=== PATIENT | male | born 1980 | race Caucasian/White ===

== ENCOUNTER 2020-11-22 12:40 | Emergency (ER) | payer OTHER ==
[~2020-11-22] VITALS: Ht 180.3 cm; Wt 104.3 kg
[2020-11-22] MEDS ORDERED: CELEBREX100 MG PO (13:20)
[2020-11-22] MEDS ORDERED: DIPHENHYDRAMINE50 M1 PO (13:20)
[2020-11-22] MEDS ORDERED: OPCON-A EYE DRO15 ML OPTH (13:21)
[2020-11-22] MEDS ORDERED: VITAMIN D325 MCG PO (13:22)
== END 2020-11-22 13:44 | disposition home or self-care (01) ==
LOC: ED 12:40
DX: M54.16 Radiculopathy, lumbar region (principal); Z87.891 Personal history of nicotine dependence; Z79.899 Other long term (current) drug therapy
CPT/HCPCS: 99283

== ENCOUNTER 2021-12-25 14:49 | Emergency (ER) | payer OTHER ==
[~2021-12-25] VITALS: Ht 180.3 cm; Wt 104.3 kg
[~2021-12-25 14:49] MED LIST: CELEBREX100 MG PO; DIPHENHYDRAMINE50 M1 PO; OPCON-A EYE DRO15 ML OPTH; VITAMIN D325 MCG PO
== END 2021-12-25 16:00 | disposition home or self-care (01) ==
LOC: ED 14:49
DX: S01.511A Laceration without foreign body of lip, initial encounter (principal); W50.0XXA Accidental hit or strike by another person, initial encounter; Z87.891 Personal history of nicotine dependence
CPT/HCPCS: 40650; 99282-25